=== PATIENT | male | born 1950 | race Caucasian/White ===

== ENCOUNTER → 2016-06-07 | Day surgery (SDC) | payer BC ==
[~2016-06-07] MED LIST: ACETAMINOPHEN/HYDROcodone 325 MG/5 MG TAB ONE; BUPIVACAINE HCL PF 0.25% 30 ML VIAL ONE; HYDR-3535 PO; KETOROLAC TROMETHAMINE 30 MG/ML (IVP) VIAL IV PUSH ONE; LACTATED RINGER'S 1000 ML INJ 1,000 ML ONE; LOVA10TA; MIDAZOLAM HCL 2 MG/2 ML VIAL ONE; ONDANSETRON HCL 4 MG/2 ML VIAL IV PUSH ONE; PANT20 PO; PROPOFOL 200 MG/20 ML AMP IV ONE; TRIAMCINOLONE ACETONIDE 40 MG/ML VIAL ONE; XANA0.5T PO; ceFAZolin 2 GM PREMIX 50 ML ONE
--- NOTE | 2016-06-08 07:21 | MP ---
cc: RODO CEBALLOS [facility] DATE OF SURGERY 06/07/2016 PREOPERATIVE DIAGNOSES 1. Left first MPJ arthritis. 2. Second digit hammertoe with metatarsalgia. 3. Right first MPJ arthritis. POSTOPERATIVE DIAGNOSES 1. Left first MPJ arthritis. 2. Second digit hammertoe with metatarsalgia. 3. Right first MPJ arthritis. PROCEDURES PERFORMED 1. Left first MPJ arthrodesis. 2. Second digit PIPJ fusion. 3. Lesser metatarsal osteotomy second. 4. Right foot small joint injection consisting of Cortisone and Kenalog 40. SPECIMEN None. ESTIMATED BLOOD LOSS Less than 30 mL. COMPLICATIONS None. ANESTHESIA General with local, 20 cc of 0.25% Marcaine plain. MATERIALS USED Ortholoc System small first ray plate and 2.7 locking and nonlocking screws, Dart-Fire System 3.0 headless screws and 2.0 cannulated screws. TOURNIQUET TIME 77 minutes at a setting of 215 mmHg. PLAN OF ACTIVITY Discharge home when stable per Same-Day Surgery criteria. JUSTIFICATION OF PROCEDURE Chronic pain of the bilateral first MPJ and second digit hammertoe. We devised a plan to move forward with surgical intervention on the left and eventually surgical intervention on the right. No guarantees given or implied regarding the outcome. PROCEDURE IN DETAIL Under mild sedation, the patient is brought into the operating room, placed on the operating table in the supine position. Following the induction of general anesthesia, local anesthesia was obtained about the left forefoot utilizing standard block fashion. The patient's foot was then scrubbed, prepped and draped in the usual aseptic fashion. The foot was elevated and exsanguinated. A previously placed mid-ankle tourniquet was inflated to 215 mmHg. An incision was made over the dorsal aspect of the first MPJ. Sharp and blunt dissection was carried down to a very osteophytic arthritic first MPJ joint. The joint surface was then resected removing all bony contour, preparing for arthrodesis site. Once being certain that the base of the proximal phalanx and the head of first metatarsal was free from any cartilage, it was then prepared utilizing solid core drill and osteotome and mallet technique. The foot was then lined in a simulated weightbearing position with the pulp of the toe slightly elevated from the weightbearing position. A screw was then placed from the base of the proximal phalanx medially, across the first metatarsal head laterally. This was the first point of fixation. Secondary fixation took place utilizing a percutaneous K-wire. Next, a dorsal plate was then placed. Two holes were then made in the distal aspect of the plate and then anchored utilizing proper A-O technique. Next, a proximal hole and the compression ramp was then placed and a full threaded screw bicortical purchase aided in the compression mechanism of the compression ramp plate and then two screws were then placed in the most proximal aspect of the plate. This secured the fixation construct. No motion at the arthrodesis site, no gapping of the arthrodesis site visualized on x-ray. The wound was then closed in layers. The capsule was closed utilizing Vicryl. The skin was closed utilizing nylon. Next an incision was made over the dorsal aspect of the second digit PIPJ which was slight curvilinear at the level of the second MPJ. Sharp and blunt dissection was carried down to a bow-strung extensor digitorum longus tendon. The tendon lengthening approach took place exposing the second MPJ capsule. A linear capsulotomy was performed. There were minimal arthritic findings at the second MPJ. Next, a dorsal distal to plantar proximal second metatarsal osteotomy was performed and the head of the second metatarsal was translocated proximally 1.5 to 2-mm and fixated utilizing AO technique with a 14-mm length screw, 2.0 screw. The redundant shelf was then removed. There was good range of motion of the second MPJ. Next, the base of the head of the proximal phalanx and the base the middle phalanx was then transected utilizing power instrumentation preparing for arthrodesis site. A wire was then placed through the middle phalanx, through the distal phalanx and retrograded back across the proximal phalanx securing the hammertoe fusion site. The wound was flushed with copious amounts of normal saline. The tendon was then repaired utilizing Vicryl. The skin was closed utilizing nylon. Upon relieving the tourniquet there was a prompt hyperemic response to all digits without any delayed capillary fill time. A bulky bandage was placed, the patient positioned within a controlled ankle motion boot. He was transferred from OR to PACU with all vital signs stable. Upon awakening the patient out of anesthesia, a trigger point injection was performed in the first MPJ consisting of 0.25 cc of Kenalog 40 and 1 cc of 0.25 Marcaine plain. This was infiltrated into the right first MPJ and a bandage placed. DOMO Arango/ROSALVA /3:48 PM /7:02 AM KARY
== END | disposition home or self-care (01) ==
LOC: ESDC 11:26
PROVIDERS: ATTEND Podiatrist Foot & Ankle Surgery
DX: M19.072 Primary osteoarthritis, left ankle and foot (principal); M19.071 Primary osteoarthritis, right ankle and foot; M20.42 Other hammer toe(s) (acquired), left foot; M77.42 Metatarsalgia, left foot
CPT/HCPCS: 01480; 20600; 28285; 28308; 28750; 73620; 76000; C1713; J0690; J1885; J2250; J2405; J3010; J3301; J7120

== ENCOUNTER → 2017-02-14 | Day surgery (SDC) | payer BC ==
[~2017-02-14] MED LIST changes: -TRIAMCINOLONE ACETONIDE 40 MG/ML VIAL ONE
--- NOTE | 2017-02-15 09:19 | MP ---
cc: RODO CEBALLOS [facility] DATE OF SURGERY 02/14/2017 PREOPERATIVE DIAGNOSIS Right first MPJ osteoarthritis hallux abductovalgus. POSTOPERATIVE DIAGNOSIS Right first MPJ osteoarthritis hallux abductovalgus. PROCEDURES PERFORMED Right first MPJ arthrodesis utilizing [employer] System small first ray plate, 2.7 locking screws and nonlocking screws as well as one 3.5 cannulated headed screw. SPECIMEN None. ESTIMATED BLOOD LOSS Less than 30 mL. COMPLICATIONS None. ANESTHESIA General with local, approximately 30 cc of 0.25% Marcaine plain. TOURNIQUET TIME 100 minutes at a setting of 215 mmHg at the patient's right ankle. PLAN OF ACTIVITY PACU, then DC home once stable per Same-Day Surgery criteria. JUSTIFICATION This is a pleasant 66-year-old male with worsening first MPJ pain. He actually had the same procedure performed on the left and wished to move forward. No guarantees were given or implied regarding the outcome. PROCEDURE IN DETAIL Under mild sedation, the patient was brought into the operating room, placed on the operative table in the supine position. Following the induction of general anesthesia, local anesthesia was obtained about the patient's right first ray utilizing standard block fashion. The right foot was then scrubbed, prepped and draped in the usual aseptic fashion, elevated, exsanguinated and the previously placed mid-ankle tourniquet was inflated to 215 mmHg. Incision was made over the dorsomedial aspect of the first MPJ. Sharp and blunt dissection was carried down to the joint capsule. An L-shaped capsulotomy was performed revealing minimal cartilage at the base of the proximal phalanx of the head of the first metatarsal. Significant osteophytes were noted. At this time all dorsal and medial osteophytic lipping was transected. Cartilage was then removed utilizing power instrumentation utilizing a biplanar wedge technique to straighten the toe, decrease the hallux valgus and slightly elevate the toe. The wound was flushed with copious amounts of normal saline. Upon verifying the base of the proximal phalanx and the head of the first MPJ was free from all cartilage, the arthrodesis were then performed. A screw was then placed from proximal medial first metatarsal head to distal lateral proximal phalanx base. A temporary K-wire was then placed further stabilizing the first MPJ. Utilizing proper AO technique, a 3.5 screw was then placed. This was a compression screw. There was noted to be excellent purchase. Next, the dorsal plate was then placed. It was locked distally utilizing 2.7 locking screws and then, utilizing the compression ramp just on the other side of the first MPJ, further compression took place utilizing a fully threaded bicortical screw and then two screws were placed at the most proximal aspect of the plate further completing the fixation construct. Attempt of range of motion took place. There was no gapping, no motion at the arthrodesis sites. X-ray was used to visualize excellent placement of the hardware and adequate length. The wound was then flushed with copious amounts of normal saline. The capsular layer was closed utilizing Vicryl. The skin was closed utilizing nylon. Upon relieving the tourniquet there was a prompt hyperemic response to all digits without any delayed capillary fill time. The patient was transferred from OR to PACU with all vital signs stable. He was positioned within a controlled ankle motion boot. He is heel transfer weight-bear only. He will ice and elevate. I will see the patient in 3-5 days. DOMO Arango /3:24 PM /8:59 AM
== END | disposition home or self-care (01) ==
LOC: ESDC 11:27
PROVIDERS: ATTEND Podiatrist Foot & Ankle Surgery
DX: M20.11 Hallux valgus (acquired), right foot (principal); M19.071 Primary osteoarthritis, right ankle and foot
CPT/HCPCS: 01480; 28750; 73660; 76000; C1713; J0690; J1885; J2250; J2405; J3010; J7120